=== PATIENT | female | born 1995 | race Caucasian/White ===

== ENCOUNTER 2016-12-25 20:54 | Emergency (ER) | payer OTHER | END 2016-12-26 00:52 | disposition home or self-care (01) | LOC: FER 20:54 | DX: J40 Bronchitis, not specified as acute or chronic (principal); F17.210 Nicotine dependence, cigarettes, uncomplicated; Z79.51 Long term (current) use of inhaled steroids | CPT/HCPCS: 71020; 87804; 87899; 99283 ==

== ENCOUNTER 2017-02-10 21:21 | Emergency (ER) | payer OTHER | END 2017-02-10 23:45 | disposition home or self-care (01) | LOC: FER 21:21 | DX: S63.501A Unspecified sprain of right wrist, initial encounter (principal); F17.210 Nicotine dependence, cigarettes, uncomplicated; W19.XXXA Unspecified fall, initial encounter; Y92.009 Unspecified place in unspecified non-institutional (private) residence as the place of occurrence of the external cause | CPT/HCPCS: 73110; 73130; 99283 ==

== ENCOUNTER 2021-06-21 19:49 | Emergency (ER) | payer OTHER ==
[~2021-06-21 19:49] MED LIST: AUGMENTIN 875-1 EACH PO; CARAFATE1 GM PO; FOLIC ACID1 MG PO; IBUPROFEN800 MG PO; MEDROL 4MG DOSEP4 MG PO; METRONIDAZOLE500 MG PO; MOTRIN600 MG PO; ONDANSETRON HCL4 MG PO; PREDNISONE50 MG PO; PROMETHAZINE/C120 ML PO; PROTONIX 40MG T40 MG PO; ROBAXIN500 MG PO; TESSALON PERLE100 MG PO; TETRACYCLINE H500 MG PO; TOPAMAX25 MG PO; VENTOLIN HFA IN18 GM INH; VIBRAMYCIN100 MG PO; VITAMIN B122500 MCG IM; VOLTAREN **OUT75 MG PO; ZANTAC150 MG PO; ZOFRAN4 MG PO; vit d
[2021-06-21 21:50] LABS: BASOPHIL 0.3 % (0-2); EOSINOPHIL 1.7 % (0-5); HCT 35.3 % (37.0-47.0); HGB 12.2 g/dl (12.5-16.0); LYMPHOCYTE 42.7 % (15-48); MCH 28.6 pg (25.0-31.0); MCHC 34.6 g/dL (32.0-36.0); MCV 82.9 fL (78.0-100.0); MPV 9.1 fL (6.0-9.5); NRBC 0; PLT 221 K/uL (150-400); RBC 4.26 M/uL (4.20-5.40); RDW 13.2 % (11.5-14.0); WBC 11.6 K/uL (4.0-10.5)
[2021-06-21 22:29] LABS: BILIRUBIN NEGATIVE (NEGATIVE); BLOOD NEGATIVE Ery/uL (NEGATIVE); CLARITY CLEAR (CLEAR); COLOR YELLOW (YELLOW); GLUCOSE (U) NORMAL (NORMAL); LEUKOCYTES NEGATIVE Leu/uL (NEGATIVE); NITRITE NEGATIVE (NEGATIVE); PROTEIN NEGATIVE (NEGATIVE); SPECIFIC GRAVITY 1.025 (1.001-1.030); UROBILINOGEN 0.2 mg/dL (0.2-1.0)
[2021-06-21 22:51] LABS: ALBUMIN 2.8 g/dL (3.4-5.0); BILIRUBIN - TOTAL 0.2 mg/dL (0.2-1.0); BUN/CREAT RATIO (CALC) 21.1 RATIO; CREATININE 0.57 mg/dL (0.51-0.95); GLOBULIN (CALCULATION) 3.5 g/dL; POTASSIUM 3.7 mmol/L (3.5-5.1); TOTAL PROTEIN 6.3 g/dL (6.4-8.2)
== END 2021-06-21 23:07 | disposition home or self-care (01) ==
LOC: FER 19:49
PROVIDERS: Nurse Practitioner Family
DX: O20.0 Threatened abortion (principal); Z3A.15 15 weeks gestation of pregnancy
CPT/HCPCS: 36415; 76830; 80053; 81003; 85025; J2405; J7120

== ENCOUNTER 2021-08-07 15:15 | Emergency (ER) | payer OTHER ==
[2021-08-07 16:48] LABS: BASOPHIL 0.3 % (0-2); EOSINOPHIL 1.1 % (0-5); HCT 35.2 % (37.0-47.0); HGB 12.2 g/dl (12.5-16.0); LYMPHOCYTE 30.1 % (15-48); MCH 29.3 pg (25.0-31.0); MCHC 34.7 g/dL (32.0-36.0); MCV 84.6 fL (78.0-100.0); MONOCYTE 4.8 % (0-12); NEUTROPHIL 63.2 % (41-80); NRBC 0; PLT 273 K/uL (150-400); RBC 4.16 M/uL (4.20-5.40); RDW 13.5 % (11.5-14.0); WBC 10.9 K/uL (4.0-10.5)
[2021-08-07 16:50] LABS: BILIRUBIN NEGATIVE (NEGATIVE); BLOOD NEGATIVE Ery/uL (NEGATIVE); CLARITY CLEAR (CLEAR); COLOR YELLOW (YELLOW); GLUCOSE (U) NORMAL (NORMAL); LEUKOCYTES NEGATIVE Leu/uL (NEGATIVE); NITRITE NEGATIVE (NEGATIVE); PROTEIN TRACE (LOW) mg/dL (NEGATIVE); SPECIFIC GRAVITY >=1.030 (1.001-1.030); pH 6.5 (5.0-9.0)
[2021-08-07 16:55] LABS: BACTERIA TRACE; URINARY WBC RARE
[2021-08-07 16:56] LABS: SQUAMOUS EPITHELIAL CELLS 20-50
[2021-08-07 17:05] LABS: BUN/CREAT RATIO (CALC) 22.2 RATIO; CREATININE 0.54 mg/dL (0.51-0.95); POTASSIUM 4.1 mmol/L (3.5-5.1)
== END 2021-08-07 20:29 | disposition home or self-care (01) ==
LOC: FER 15:15
PROVIDERS: Nurse Practitioner Family
DX: O99.282 Endocrine, nutritional and metabolic diseases complicating pregnancy, second trimester (principal); E86.0 Dehydration; O99.891 Other specified diseases and conditions complicating pregnancy; R55 Syncope and collapse; Z3A.22 22 weeks gestation of pregnancy
CPT/HCPCS: 36415; 80048; 81001; 85025; 99284; J7120